=== PATIENT | female | born 1970 | race Caucasian/White ===

== ENCOUNTER 2018-02-06 00:09 | Emergency (ER) | payer OTHER ==
[~2018-02-06] VITALS: Ht 160 cm; Wt 67.6 kg
[2018-02-06 01:50] LABS: BASOPHIL % 0.6 % (0-2)
[2018-02-06 01:55] LABS: PLATELET COUNT 413 x10^3mcL (130-400); RED CELL DISTRIBUTION WIDTH 14.6 % (11.5-14.5)
[2018-02-06 02:04] LABS: CARBON DIOXIDE 26.4 mmol/L (21-32); CHLORIDE SERUM 103 mmol/L (98-107); CREATININE SERUM 0.7 mg/dL (0.6-1.0); GFR1 > 60 mL/min; GLUCOSE SERUM 97 mg/dL (74-106); POTASSIUM SERUM 3.8 mmol/L (3.5-5.1); SODIUM SERUM 134 mmol/L (136-145)
[2018-02-06 02:09] LABS: ALKALINE PHOSPHATASE 267 U/L (46-116); ALT/SGPT 13 U/L (14-59); AST/SGOT 37 U/L (15-37); BILIRUBIN TOTAL 0.31 mg/dL (0.20-1.00); TOTAL PROTEIN, SERUM 6.9 g/dL (6.4-8.2)
[2018-02-06 02:14] LABS: ALBUMIN 2.8 g/dL (3.4-5.0)
[2018-02-06 03:03] VITALS: BP 117/76
== END 2018-02-06 03:03 | disposition home or self-care (01) ==
LOC: ED 00:09
PROVIDERS: Emergency Medicine Emergency Medical Services
DX: K52.9 Noninfective gastroenteritis and colitis, unspecified (principal); Z90.49 Acquired absence of other specified parts of digestive tract
CPT/HCPCS: 36415; Q0162

== ENCOUNTER 2019-08-01 09:12 | Emergency (ER) | payer OTHER ==
[2019-08-01 10:35] LABS: CARBON DIOXIDE 27.7 mmol/L (21-32); CHLORIDE SERUM 101 mmol/L (98-107); CREATININE SERUM 0.7 mg/dL (0.6-1.0); GFR1 > 60 mL/min; GLUCOSE SERUM 93 mg/dL (74-106); POTASSIUM SERUM 3.9 mmol/L (3.5-5.1); SODIUM SERUM 136 mmol/L (136-145); TOTAL PROTEIN, SERUM 8.7 g/dL (6.4-8.2)
[2019-08-01 10:36] LABS: ALKALINE PHOSPHATASE 309 U/L (46-116); ALT/SGPT 81 U/L (14-59); AST/SGOT 64 U/L (15-37); BILIRUBIN TOTAL 1.09 mg/dL (0.20-1.00)
[2019-08-01 11:00] LABS: BASOPHIL % 0.2 % (0-2); PLATELET COUNT 116 x10^3mcL (130-400); RED CELL DISTRIBUTION WIDTH 16.5 % (11.5-14.5)
[2019-08-01 16:26] VITALS: BP 132/86
== END 2019-08-01 16:05 | disposition home or self-care (01) ==
LOC: ED 09:12
PROVIDERS: Emergency Medicine
DX: R07.89 Other chest pain (principal); F41.9 Anxiety disorder, unspecified; Z85.038 Personal history of other malignant neoplasm of large intestine; Z90.49 Acquired absence of other specified parts of digestive tract; Z98.890 Other specified postprocedural states
CPT/HCPCS: 83880; 85378; J2060; J7030; Q0092; Q9967